=== PATIENT | female | born 1950 | race Caucasian/White ===

== ENCOUNTER → 2016-08-16 | Outpatient (CLI) | payer MEDICAID | LOC: FIMAGING 14:05 | DX: Z12.31 Encounter for screening mammogram for malignant neoplasm of breast (principal) | CPT/HCPCS: G0202 ==

== ENCOUNTER 2016-12-18 15:57 | Emergency (ER) | payer MEDICAID ==
[2016-12-18 16:07] VITALS: BP 139/77; PULSE 89; RESP 16; TEMP 97.7; O2SAT 97
--- NOTE | 2016-12-18 16:20 | EDPHY ---
H & P Time Seen by Provider: 12/18/16 16:08 HPI/ROS: CHIEF COMPLAINT: " I have a sore I want you to look at" HISTORY OF PRESENT ILLNESS: 66-year-old female history of arthrogryposis, no history of chronic skin infections and history of up-to-date tetanus, arrives via private vehicle to the emergency department complaining of concerns over possible infection to her left pretibial region. She notes approximately 2 weeks ago a highly pruritic insect bite to this area which she has been excoriating and notes new erythema. No lymphangitic streaking. No fever no chills no flu-like symptoms. PRIMARY CARE PROVIDER: Dr. Haley Hunter at the [facility] REVIEW OF SYSTEMS: A ten point review of systems was performed and is negative with the exception of the items mentioned in the HPI PHYSICAL EXAM (Prior to examination, patient consented to physical exam, hands were washed and my usual and customary physical exam procedures followed) 1) GENERAL: Well-developed, well-nourished, alert and oriented. Appears to be in no acute distress. 2) HEAD: Normocephalic 3) HEENT: sclera anicteric 4) LUNGS: Breathing comfortably. 5) SKIN: left distal 1/3 pretibial region erythematous tender indurated lesion measuring approximately 2 cm in diameter. No lymphangitic streaking. No crepitus. Negative Homans no palpable cord. 6) MUSCULOSKELETAL: soft compartments DP PT pulses present and brisk distally 7) NEUROLOGIC: Smoking Status: Current every day smoker Constitutional: Initial Vital Signs Temperature (C) 36.5 C 12/18/16 16:04 Heart Rate 89 12/18/16 16:04 Respiratory Rate 16 12/18/16 16:04 Blood Pressure 139/77 H 12/18/16 16:04 O2 Sat (%) 97 12/18/16 16:04 O2 Delivery Mode Room Air Allergies/Adverse Reactions: aspirin [Aspirin] Allergy (Unknown, Verified 12/18/16 16:04) Home Medications: Medication Instructions Recorded Propoxyphene/Acetaminophen 100 mg PO Q4-6PRN PRN #12 tab 03/01/10 [Darvocet-N 100] Calcium Carbonate/Vitamin D3 1 each PO DAILY 08/18/10 [Calcium 500 + Vit D Caplet] Divalproex [Depakote] 250 mg PO BID 08/18/10 levETIRAcetam [Keppra] 750 mg PO TID 08/18/10 Cephalexin [Keflex] 500 mg PO QID 10 Days 12/18/16 MDM/Departure - [facility] ED Course/Re-evaluation: This patient has a localized skin infection with likely secondary to excoriation from an insect bite. Doubt necrotizing fasciitis. Doubt DVT. Doubt compartment syndrome. No history of chronic skin infections. Will be started on monotherapy antibiotic and follow up with PCP in 2 days. Usual and customary wound precautions and instructions provided.Care and management in consultation with [secondary] supervising physician Dr Crandall . - Depart Disposition: Home, Routine, Self-Care Clinical Impression: Infected puncture wound Condition: Good Instructions: Wound Infection (ED) Additional Instructions: Return to the ER if you develop redness, swelling, discharge, warmth to the wound, red streaks going up your leg, or any other symptoms that concern you. Prescriptions: Cephalexin [Keflex] 500 mg PO QID 10 Days Referrals: Haley Hunter MD [Primary Care Provider] - 1-2 days without fail
== END 2016-12-18 16:33 | disposition home or self-care (01) ==
DX: S80.862A Insect bite (nonvenomous), left lower leg, initial encounter (principal); L08.9 Local infection of the skin and subcutaneous tissue, unspecified; F17.200 Nicotine dependence, unspecified, uncomplicated; W57.XXXA Bitten or stung by nonvenomous insect and other nonvenomous arthropods, initial encounter

== ENCOUNTER 2017-03-08 16:15 | Emergency (ER) | payer MEDICAID ==
[2017-03-08 16:21] VITALS: RESP 16
[2017-03-08] MEDS ORDERED: CARBAMIDE PEROXIDE 15 ML OTIC.BTL EACHEAR ONE (16:42)
--- NOTE | 2017-03-08 16:47 | EDPHY ---
H & P Time Seen by Provider: 03/08/17 16:36 HPI/ROS: CHIEF COMPLAINT: My ears are plugged up I want them cleaned out HISTORY OF PRESENT ILLNESS: Patient says over the last 48 hours she is having trouble hearing out of her ears. She feels like she must have worsening earwax buildup. No pain or drainage. No recent injury or trauma. REVIEW OF SYSTEMS: Otherwise stable PAST MEDICAL HISTORY: arthrogryposis in wheelchair General Appearance: Alert and conversant, cooperative. Both canals are obscured by cerumen. External canals appear normal otherwise. Patient is otherwise alert and conversant. Her speech is a little bit slurred which is baseline for her. Emergency Department course/MDM: Debrox and irrigation. 1820: Feels better, can hear normally now, examined and tympanic membranes are both visible. A little bit of bleeding in the canals which would be expected after irrigation. Smoking Status: Current every day smoker Constitutional: Initial Vital Signs Temperature (C) 37.0 C 03/08/17 16:18 Heart Rate 82 03/08/17 16:18 Respiratory Rate 16 03/08/17 16:18 Blood Pressure 128/89 H 03/08/17 16:18 O2 Delivery Mode Room Air Allergies/Adverse Reactions: aspirin [Aspirin] Allergy (Unknown, Verified 12/18/16 16:04) Home Medications: Medication Instructions Recorded Propoxyphene/Acetaminophen 100 mg PO Q4-6PRN PRN #12 tab 03/01/10 [Darvocet-N 100] Calcium Carbonate/Vitamin D3 1 each PO DAILY 08/18/10 [Calcium 500 + Vit D Caplet] Divalproex [Depakote] 250 mg PO BID 08/18/10 levETIRAcetam [Keppra] 750 mg PO TID 08/18/10 Cephalexin [Keflex] 500 mg PO QID 10 Days cap 12/18/16 MDM/Departure - MDM Medications Given: Discontinued Medications Carbamide Peroxide (Debrox) 5 drop EACHEAR EDNOW ONE Stop: 03/08/17 16:43 Last Admin: 03/08/17 18:17 Dose: 5 drops - Depart Disposition: Home, Routine, Self-Care Clinical Impression: Cerumen impaction Qualifiers: Laterality: bilateral Qualified Code(s): H61.23 - Impacted cerumen, bilateral Condition: Good Instructions: Cerumen Impaction (ED) Referrals: Haley Hunter MD [Primary Care Provider] - As per Instructions sIhan Doan MD [Medical Doctor] - As per Instructions
[2017-03-08 18:41] VITALS: BP 133/75; PULSE 88; TEMP 97.5; O2SAT 97
== END 2017-03-08 18:39 | disposition home or self-care (01) ==
PROC: 3E1B78Z Irrigation of Ear using Irrigating Substance, Via Natural or Artificial Opening (ICD-10-PCS; principal; 2017-03-08)
DX: H61.23 Impacted cerumen, bilateral (principal); F17.200 Nicotine dependence, unspecified, uncomplicated

== ENCOUNTER → 2017-08-17 | Outpatient (CLI) | payer MEDICAID | LOC: FIMAGING 14:40 | PROVIDERS: ATTEND Family Medicine | DX: Z12.31 Encounter for screening mammogram for malignant neoplasm of breast (principal); Z80.3 Family history of malignant neoplasm of breast ==

== ENCOUNTER → 2018-07-19 | Outpatient (CLI) | payer OTHER, MEDICAID | LOC: FIMAGING 13:27 ==

== ENCOUNTER → 2018-08-19 | Outpatient (CLI) | payer OTHER, MEDICAID | LOC: FIMAGING 13:42 | PROVIDERS: ATTEND Family Medicine | DX: Z12.31 Encounter for screening mammogram for malignant neoplasm of breast (principal); Z80.3 Family history of malignant neoplasm of breast ==